=== PATIENT | female | born 1965 | race Caucasian/White ===

== ENCOUNTER 2018-10-31 19:44 | Emergency (ER) | payer MEDICAID ==
[~2018-10-31] VITALS: Ht 167.6 cm; Wt 72.6 kg
[2018-10-31] MEDS ORDERED: cloNIDine HCL 0.1 MG TAB PO ONE (20:00)
[2018-10-31 20:31] VITALS: BP 200/97
== END 2018-11-01 01:36 | disposition left against medical advice (07) ==
LOC: EDBD 19:44 → ER 19:52
DX: M25.561 Pain in right knee (principal); R51 Headache; Z53.21 Procedure and treatment not carried out due to patient leaving prior to being seen by health care provider
CPT/HCPCS: 73562